=== PATIENT | male | born 2000 | race Caucasian/White ===

== ENCOUNTER → 2019-02-21 | Outpatient (CLI) | payer OTHER ==
--- NOTE | 2019-02-21 13:07 | Diagnostic Imaging Report ---
EXAM: Lumbar spine radiographs-6 views INDICATION: Low back pain. COMPARISON: None FINDINGS: BONES: The alignment is within normal limits. No acute displaced fractures. Vertebral body heights are preserved. DISCS: No evidence of degenerative disc changes. JOINTS: The facet joints and sacroiliac joints are unremarkable. SOFT TISSUES: Unremarkable IMPRESSION: No acute lumbar spine radiographic findings. Signed by: Dr. Amarilis Pool MD on 02/21/2019 1:04 PM
== END ==
LOC: RAD 11:00
PROVIDERS: ATTEND Family Medicine
DX: M54.5 Low back pain (principal)
CPT/HCPCS: 72110